=== PATIENT | male | born 1945 | race Hispanic/Latino ===

== ENCOUNTER 2020-10-02 09:07 | Outpatient (CLI) | payer MEDICARE, OTHER ==
--- NOTE | 2020-10-02 14:20 | Vascular Lab Report ---
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 TECHNIQUE: B-mode and Doppler imaging was used to evaluate the aorta. NOTE: Study was technically difficult due to overlying bowel gas. Patient was not n.p.o. for the proc edure. COMPARISON: None available. FINDINGS: Minimal atherosclerotic plaque is visualized. PROXIMAL ABDOMINAL AORTA (cm): 2.8 MID ABDOMINAL AORTA (cm): 2.5 DISTAL ABDOMINAL AORTA (cm): 2.8 RIGHT ILIAC ARTERY (cm): 1.4 LEFT ILIAC ARTERY (cm): 1.7 ADDITIONAL FINDINGS: None. IMPRESSION: 1. Mildly ectatic distal abdominal aorta. 2. Mildly elevated velocities are noted within the superior mesenteric and celiac arteries but with g ood flow and waveforms seen. FOLLOW-UP RECOMMENDATION: Aortic diameter less than 3.0 cm = Optional follow-up ultrasound in 3 years. Reference: The Society for Vascular [employer] practice guidelines on the care of patients with an abdom inal aortic aneurysm. SVS guidelines on AAA can be found online: [email or web address].org/article/[email or web address]([email or web address] Scribed by: Kalyani Harrison RDNH, T Scribed: 10/02/2020 12:02 PM I have reviewed the images, agree with this report, and edited this report as needed. Signer Name: Markel Osei MD Signed: 10/02/2020 2:16 PM Workstation Name: [id number]
== END 2020-10-02 09:08 | disposition home or self-care (01) ==
LOC: US 09:07
PROVIDERS: ATTEND Internal Medicine
DX: I77.811 Abdominal aortic ectasia (principal)
CPT/HCPCS: 93979